=== PATIENT | female | born 1990 | race Caucasian/White ===

== ENCOUNTER 2017-11-22 14:29 | Inpatient (IN) | payer BC ==
[2017-11-22] MEDS ORDERED: Sodium Chloride 0.9% 2.5 ML Syringe FLUSH PRN (15:33)
[2017-11-22] MEDS ORDERED: Sodium Chloride 0.9% 10 ML Syringe FLUSH PRN (15:33)
[2017-11-22 17:18] LABS: CHLORIDE,CL 103 mmol/L (98-107); SODIUM,NA 132 mmol/L (136-145)
[2017-11-23 06:54] LABS: CHLORIDE,CL 104 mmol/L (98-107); SODIUM,NA 134 mmol/L (136-145)
[2017-11-23] MEDS: Prenatal Multivitamin and Multimineral with Iron Tab PO SCH (09:00)
[2017-11-23] MEDS ORDERED: Betamethasone Acetate/Betamethasone Sod Phosphate 30 MG/5 ML MDV IM ONE (14:00)
[2017-11-24] MEDS ORDERED: Terbutaline 1 MG/ML SDV SUBCUT PRN (15:35)
[2017-11-24] MEDS ORDERED: Misoprostol 25 MCG (1/4 of 100 MCG) Tab VAG PRN ×2 (16:00→22:00)
[2017-11-24] MEDS ORDERED: Ampicillin 2 GM in Sodium Chloride 0.9% 100 ML IV ONE (20:00)
[2017-11-24] MEDS ORDERED: Ampicillin 2 GM AdvVial IV ONE (23:17)
[2017-11-25] MEDS ORDERED: Misoprostol 25 MCG (1/4 of 100 MCG) Tab PO ONE (00:05)
[2017-11-25] MEDS: Lactated Ringers 1,000 ML IV SCH ×2 (03:10→05:15)
[2017-11-25] MEDS: Ampicillin 1 GM in Sodium Chloride 0.9% 50 ML IV SCH ×3 (03:28→11:19)
--- NOTE | 2017-11-25 03:34 | PCM.PREANE ---
Preanesthetic Assessment - Anesthesia/Transfusion/Family Hx Anesthesia History: No Prior Anesthesia Family History of Anesthesia Reaction: No Transfusion History: No Prior Transfusion(s) - Review of Systems General: No Symptoms Pulmonary: No Symptoms Cardiovascular: No Symptoms, Edema Gastrointestinal: No Symptoms Neurological: No Symptoms Other: Reports: None (Denies any personal or family hx of bleeding or clotting problems) - Physical Assessment Height: 1.55 m Weight: 77.224 kg ASA Class: 3 Mental Status: Alert & Oriented x3 Airway Class: Mallampati = 2 Dentition: Reports: Normal Dentition Thyro-Mental Finger Breadths: 3 Mouth Opening Finger Breadths: 3 - Lab Values: Laboratory Last Values WBC 6.94 K/uL (4.0-11.0) 11/23/17 05:55 RBC 4.08 M/uL (4.30-5.90) L 11/23/17 05:55 Hgb 12.3 g/dL (12.0-16.0) 11/23/17 05:55 Hct 36.0 % (36.0-46.0) 11/23/17 05:55 MCV 88.2 fL (80.0-98.0) 11/23/17 05:55 MCH 30.1 pg (27.0-32.0) 11/23/17 05:55 MCHC 34.2 g/dL (31.0-37.0) 11/23/17 05:55 RDW Std Deviation 43.8 fl (28.0-62.0) 11/23/17 05:55 RDW Coeff of Edward 14 % (11.0-15.0) 11/23/17 05:55 Plt Count 200 K/uL (150-400) 11/23/17 05:55 MPV 11.30 fL (7.40-12.00) 11/23/17 05:55 Nucleated RBC % 0.0 /100WBC 11/23/17 05:55 Nucleated RBCs # 0 K/uL 11/23/17 05:55 Sodium 134 mmol/L (136-145) L 11/23/17 05:55 Potassium 4.3 mmol/L (3.5-5.1) 11/23/17 05:55 Chloride 104 mmol/L (98-107) 11/23/17 05:55 Carbon Dioxide 22.4 mmol/L (21.0-32.0) 11/23/17 05:55 BUN 24 mg/dL (7.0-18.0) H 11/23/17 05:55 Creatinine 1.0 mg/dL (0.6-1.0) 11/23/17 05:55 Est Cr Clr Drug Dosing 63.20 mL/min 11/23/17 05:55 Estimated GFR (MDRD) > 60.0 ml/min 11/23/17 05:55 Glucose 90 mg/dL (74-106) 11/23/17 05:55 POC Glucose 102 mg/dL (60-110) 11/24/17 18:02 Uric Acid 8.8 mg/dL (2.6-7.2) H 11/23/17 05:55 Calcium 8.2 mg/dL (8.5-10.1) L 11/23/17 05:55 Total Bilirubin 0.2 mg/dL (0.2-1.0) 11/23/17 05:55 AST 23 IU/L (15-37) 11/23/17 05:55 ALT 27 IU/L (14-63) 11/23/17 05:55 Alkaline Phosphatase 153 U/L (46-116) H 11/23/17 05:55 Lactate Dehydrogenase 216 U/L (81-234) 11/22/17 16:26 Total Protein 5.5 g/dL (6.4-8.2) L 11/23/17 05:55 Albumin 2.0 g/dL (3.4-5.0) L 11/23/17 05:55 Globulin 3.5 g/dL (2.0-3.5) 11/23/17 05:55 Albumin/Globulin Ratio 0.6 (1.3-2.8) L 11/23/17 05:55 Ur Collection Duration 24 11/23/17 16:15 Urine Total Volume 1900 (800-1800) H 11/23/17 16:15 Ur Total Protein Conc 224.2 mg/dL (0-14) H 11/23/17 16:15 Ur Total Protein 24 Hr 4259.8 mg/24HRS 11/23/17 16:15 Blood Type B POSITIVE 11/22/17 16:26 Antibody Screen NEGATIVE 11/22/17 16:26 - Allergies Allergies/Adverse Reactions: Allergies Allergy/AdvReac Type Severity Reaction Status Date / Time No Known Allergies Allergy Verified 10/31/15 10:22 - Acknowledgements Anesthesia Type Planned: Epidural Pt an Appropriate Candidate for the Planned Anesthesia: Yes Alternatives and Risks of Anesthesia Discussed w Pt/Guardian: Yes Pt/Guardian Understands and Agrees with Anesthesia Plan: Yes PreAnesthesia Questionnaire Cardiovascular History: Reports: Other (See Below) Other Cardiovascular History: gestational Hypertension 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: Endocrine/Metabolic History: Reports: Diabetes, Gestational Hematologic History: Reports: Anemia - Past Surgical History Cardiovascular Surgical History: Reports: None - SUBSTANCE USE Smoking Status *Q: Never Smoker Tobacco Use Within Last Twelve Months: No Second Hand Smoke Exposure: No Recreational Drug Use History: No - HOME MEDS Home Medications: Home Meds Aspirin [Children's Aspirin] 81 mg PO DAILY 11/22/17 [History] Ferrous Sulfate [Iron] 325 mg PO DAILY 11/22/17 [History] No.137/Iron/Folic Acd [ Vitamin Tablet] 1 each PO DAILY [History] - CURRENT (IN HOUSE) MEDS Current Meds: Current Medications Oxytocin/Sodium Chloride (Oxytocin 30 Unit/500 Ml-Ns) 30 unit in 500 mls @ 2 mls/hr IV TITRATE JULIUS; Protocol Ampicillin Sodium 1 gm/ Sodium (Chloride) 50 mls @ 100 mls/hr IV Q4H JULIUS Last Admin: 11/25/17 03:28 Dose: 100 mls/hr Lactated Ringer's (Ringers, Lactated) 1,000 mls @ 125 mls/hr IV ASDIRECTED JULIUS Last Admin: 11/25/17 03:10 Dose: 999 mls/hr Misoprostol (Cytotec) 25 mcg VAG ONETIME PRN PRN Reason: Cervical Ripening Last Admin: 11/24/17 17:17 Dose: 25 mcg Misoprostol (Cytotec) 25 mcg VAG Q6H PRN PRN Reason: Cervical Ripening Last Admin: 11/24/17 23:38 Dose: 25 mcg Prenat Multivit/[place]/Iron/Folic Ac ( Mtr) 1 each PO DAILY JULIUS Last Admin: 11/23/17 09:00 Dose: 1 each Sodium Chloride (Saline Flush) 10 ml FLUSH ASDIRECTED PRN PRN Reason: Keep Vein Open Sodium Chloride (Saline Flush) 2.5 ml FLUSH ASDIRECTED PRN PRN Reason: Keep Vein Open Terbutaline Sulfate (Brethine) 0.25 mg SUBCUT ASDIRECTED PRN PRN Reason: Tacysystole Discontinued Medications Ampicillin Sodium (Ampicillin) Confirm Administered Dose 2 gm IV .STK-MED ONE Stop: 11/24/17 23:18 Betamethasone Acet/Betameth SodPhos (Celestone Soluspan 6 Mg/Ml) 12 mg IM ONETIME ONE Stop: 11/23/17 14:01 Last Admin: 11/23/17 14:12 Dose: 2 ml Ampicillin Sodium 2 gm/ Sodium (Chloride) 100 mls @ 200 mls/hr IV ONETIME ONE Stop: 11/24/17 20:29 Last Admin: 11/24/17 23:31 Dose: 200 mls/hr Fentanyl/Bupivacaine HCl (Fejacdmh-Hzazu-Yt 2 Mcg/Ml-0.125%) Confirm Administered Dose 100 mls @ as directed EP .STK-MED ONE Stop: 11/25/17 02:53 Misoprostol (Cytotec) 25 mcg PO ONETIME ONE Stop: 11/25/17 00:06
[2017-11-25] MEDS: Oxytocin/0.9 % Sodium Chloride 30 UNIT/500 ML BAG IV SCH ×2 (05:30→13:54)
[2017-11-25] MEDS ORDERED: Bupivacaine 0.5% 30 ML SDV ONE (11:06)
[2017-11-25] MEDS ORDERED: Lidocaine 1% 50 ML MDV ONE (12:49)
[2017-11-25] MEDS ORDERED: Morphine 10 MG/ML Syringe IVPUSH ONE (13:10)
[2017-11-25] MEDS ORDERED: Misoprostol 200 MCG Tab ONE (13:10)
[2017-11-25] MEDS ORDERED: Morphine 10 MG/ML Syringe ONE (13:10)
[2017-11-25] MEDS ORDERED: Ibuprofen 400 MG Tab PO PRN (14:18)
[2017-11-25] MEDS ORDERED: Acetaminophen 500 MG Tab PO PRN ×2 (14:18)
[2017-11-25] MEDS ORDERED: Lanolin 100% Cream 7 GM Tube TOP PRN (14:18)
[2017-11-25] MEDS ORDERED: Bisacodyl 10 MG Supp RECTAL PRN (14:18)
[2017-11-25] MEDS ORDERED: Witch Hazel Medicated Pads 40/Jar TOP PRN (14:18)
[2017-11-25] MEDS ORDERED: Benzocaine/Menthol 20%-0.5% Spray 78 GM Cannister TOP PRN (14:18)
[2017-11-25] MEDS ORDERED: Docusate Sodium 100 MG Cap PO PRN (14:18)
[2017-11-25] MEDS ORDERED: oxyCODONE 5 MG Tab PO PRN (14:18)
--- NOTE | 2017-11-25 14:30 | PCM.DEL ---
L & D Note - General Info Date of Service: 11/25/17 Mother's Due Date: 12/20/17 - Delivery Note Labor: Induced by Oxytocin Cervical Ripening Method: Misoprostil Delivery Outcome: Livebirth Infant Delivery Method: Spontaneous Vaginal Delivery-Twins (Twin delivery ) Presentation: Right Occiput Anterior (OLE) Nuchal Cord: None Anesthesia Type: Epidural Anesthetic: Lidocaine (Xylocaine) 1% Plain Local Anesthetic Volume: 5cc Amniotic Fluid Description: Clear Episiotomy Type: None Laceration: 2nd Degree Suture type: Other (monocyrl) Suture size: 2-0 Placenta: Intact Cord: 3 Vessels Estimated Blood Loss: 1,000 Resuscitation Needed: Yes [place]: Bulb Syringe (Twin A - Live female deliver) Score 1 min: 8 Score 5 min: 9 Delivery Comments (Free Text/Narrative):: Twin vertex delivery Twin A: Live female delivered at 12.11 8/9 wt: 2330g Twin B: Live female delivered at 12.27 7/8 wt:1800g - General Info Date of Service: 11/25/17 - Patient Data Weight - Most Recent: 77.224 kg Lab Results Last 24 Hours: Laboratory Results - last 24 hr 11/24/17 Range/Units 18:02 POC Glucose 102 (60-110) mg/dL Med Orders - Current: Current Medications Acetaminophen (Tylenol Extra Strength) 500 mg PO Q4H PRN PRN Reason: Pain Acetaminophen (Tylenol Extra Strength) 1,000 mg PO Q4H PRN PRN Reason: Pain Benzocaine/Menthol (Dermoplast Pain Relief 20%-0.5% [place]) 78 gm TOP ASDIRECTED PRN PRN Reason: Perineal Comfort Measure Bisacodyl (Dulcolax) 10 mg RECTAL ONETIME PRN PRN Reason: Constipation Carboprost Tromethamine (Hemabate Ds) 250 mcg IM ASDIRECTED ONE Stop: 11/25/17 12:46 Docusate Sodium (Colace) 100 mg PO BID PRN PRN Reason: Constipation Emollient Ointment (Lansinoh Hpa) 0 gm TOP ASDIRECTED PRN PRN Reason: Sore Nipples Oxytocin/Sodium Chloride (Oxytocin 30 Unit/500 Ml-Ns) 30 unit in 500 mls @ 2 mls/hr IV TITRATE JULIUS; Protocol Last Admin: 11/25/17 13:54 Dose: 999 munits/min, 999 mls/hr Ampicillin Sodium 1 gm/ Sodium (Chloride) 50 mls @ 100 mls/hr IV Q4H [facility] Last Admin: 11/25/17 11:19 Dose: 100 mls/hr Lactated Ringer's (Ringers, Lactated) 1,000 mls @ 125 mls/hr IV ASDIRECTED [facility] Last Admin: 11/25/17 05:15 Dose: 999 mls/hr Ibuprofen (Motrin) 400 mg PO Q4H PRN PRN Reason: Pain Ibuprofen (Motrin) 800 mg PO Q6H PRN PRN Reason: Pain Misoprostol (Cytotec) 25 mcg VAG ONETIME PRN PRN Reason: Cervical Ripening Last Admin: 11/24/17 17:17 Dose: 25 mcg Misoprostol (Cytotec) 25 mcg VAG Q6H PRN PRN Reason: Cervical Ripening Last Admin: 11/24/17 23:38 Dose: 25 mcg Oxycodone HCl (Oxycodone) 5 mg PO Q2H PRN PRN Reason: Pain Prenat Multivit/Cut Roll Machine Operator/Iron/Folic Ac ( Mtr) 1 each PO DAILY [facility] Last Admin: 11/23/17 09:00 Dose: 1 each Sodium Chloride (Saline Flush) 10 ml FLUSH ASDIRECTED PRN PRN Reason: Keep Vein Open Sodium Chloride (Saline Flush) 2.5 ml FLUSH ASDIRECTED PRN PRN Reason: Keep Vein Open Terbutaline Sulfate (Brethine) 0.25 mg SUBCUT ASDIRECTED PRN PRN Reason: Tacysystole Witpo Liriano (Tucks) 1 pad TOP ASDIRECTED PRN PRN Reason: comfort care Discontinued Medications Ampicillin Sodium (Ampicillin) Confirm Administered Dose 2 gm IV .STK-MED ONE Stop: 11/24/17 23:18 Betamethasone Acet/Betameth SodPhos (Celestone Soluspan 6 Mg/Ml) 12 mg IM ONETIME ONE Stop: 11/23/17 14:01 Last Admin: 11/23/17 14:12 Dose: 2 ml Bupivacaine HCl (Marcaine 0.5%) Confirm Administered Dose 30 ml .ROUTE .STK-MED ONE Stop: 11/25/17 11:07 Ampicillin Sodium 2 gm/ Sodium (Chloride) 100 mls @ 200 mls/hr IV ONETIME ONE Stop: 11/24/17 20:29 Last Infusion: 11/25/17 00:00 Dose: Infused Fentanyl/Bupivacaine HCl (Dcqtfayr-Wgzzu-Bk 2 Mcg/Ml-0.125%) Confirm Administered Dose 100 mls @ as directed EP .STK-MED ONE Stop: 11/25/17 02:53 Fentanyl/Bupivacaine HCl (Kvtnlkcg-Zxqxp-Av 2 Mcg/Ml-0.125%) Confirm Administered Dose 100 mls @ as directed EP .STK-MED ONE Stop: 11/25/17 11:40 Lidocaine HCl (Xylocaine-Mpf 1%) Confirm Administered Dose 10 mls @ as directed .ROUTE .STK-MED ONE Stop: 11/25/17 12:48 Lidocaine HCl (Xylocaine 1%) Confirm Administered Dose 50 ml .ROUTE .STK-MED ONE Stop: 11/25/17 12:50 Misoprostol (Cytotec) 25 mcg PO ONETIME ONE Stop: 11/25/17 00:06 Last Admin: 11/25/17 00:05 Dose: 25 mcg Misoprostol (Cytotec) Confirm Administered Dose 800 mcg .ROUTE .STK-MED ONE Stop: 11/25/17 13:11 Morphine Sulfate (Morphine) Confirm Administered Dose 10 mg .ROUTE .STK-MED ONE Stop: 11/25/17 13:11 - Problem List & Annotations (1) Twin delivered vaginally SNOMED Code(s): 230533623 Code(s): O30.009 - TWIN , UNSP NUM PLCNTA & AMNIO SACS, UNSP TRIMESTER Status: Acute Current Visit: Yes - Problem List Review Problem List Initiated/Reviewed/Updated: Yes - My Orders Last 24 Hours: My Active Orders 11/24/17 15:35 Bedrest Bathroom Privileges [RC] ASDIRECTED Communication Order [RC] ASDIRECTED Communication Order [RC] ASDIRECTED Communication Order [RC] ASDIRECTED Notify Provider [RC] PRN Notify Provider [RC] PRN Notify Provider [RC] STAT Oxygen Therapy [RC] ASDIRECTED Vital Signs [RC] PER UNIT ROUTINE Terbutaline [Brethine] 0.25 mg SUBCUT ASDIRECTED PRN 11/24/17 15:45 Oxytocin/0.9 % Sodium Chloride [Oxytocin 30 Unit/500 ML-NS] 30 unit in 500 ml IV TITRATE Medication Administration Instruction [OM.PC] Q3H 11/24/17 16:00 miSOPROStol [Cytotec] 25 mcg VAG ONETIME PRN 11/24/17 22:00 miSOPROStol [Cytotec] 25 mcg VAG Q6H PRN 11/24/17 23:30 Lactated Ringers [Ringers, Lactated] 1,000 ml IV ASDIRECTED 11/25/17 00:00 Ampicillin 1 gm Sodium Chloride 0.9% [Normal Saline] 50 ml IV Q4H 11/25/17 11:13 OB Ltd 1 or More Fetus [US] Routine 11/25/17 12:45 Carboprost Tromethamine [Hemabate DS] 250 mcg IM ASDIRECTED ONE 11/25/17 13:10 Morphine 6 mg IVPUSH ONETIME ONE 11/25/17 14:18 CBC WITH AUTO DIFF [HEME] Urgent COMPREHENSIVE METABOLIC PN,CMP [CHEM] Urgent Acetaminophen [Tylenol Extra Strength] 1,000 mg PO Q4H PRN Acetaminophen [Tylenol Extra Strength] 500 mg PO Q4H PRN Benzocaine/Menthol [Dermoplast Pain Relief 20%-0.5% [place]] 78 gm TOP ASDIRECTED PRN Bisacodyl [Dulcolax] 10 mg RECTAL ONETIME PRN Docusate Sodium [Colace] 100 mg PO BID PRN Ibuprofen [Motrin] 400 mg PO Q4H PRN Ibuprofen [Motrin] 800 mg PO Q6H PRN Lanolin [Lansinoh HPA] See Dose Instructions TOP ASDIRECTED PRN Witch Deandra [Tucks] 1 pad TOP ASDIRECTED PRN oxyCODONE 5 mg PO Q2H PRN Resuscitation Status Routine 11/25/17 14:19 Patient Status [ADT] Routine May Shower [RC] ASDIRECTED Up ad Rhina [RC] ASDIRECTED Vital Signs [RC] PER UNIT ROUTINE Assess Lochia [WOMSER] Per Unit Routine Assess Uterine Involution [WOMSER] Per Unit Routine Peripheral IV Discontinue [OM.PC] Routine 11/26/17 06:00 HEMOGLOBIN/HEMATOCRIT,HH [HEME] Routine
[2017-11-25] MEDS: Carboprost Tromethamine 250 MCG/1 ML Amp IM ONE ×2 (14:47→14:48)
[2017-11-25 15:05] LABS: CHLORIDE,CL 101 mmol/L (98-107); SODIUM,NA 130 mmol/L (136-145)
[2017-11-25] MEDS: Ibuprofen 800 MG Tab PO PRN (16:43)
[2017-11-26] MEDS: Ibuprofen 800 MG Tab PO PRN (03:18)
--- NOTE | 2017-11-26 08:09 | PCM48HPAN ---
Post Anesthesia Note - EVALUATION WITHIN 48HRS OF ANESTHETIC Vital Signs in Normal Range: Yes Patient Participated in Evaluation: Yes Respiratory Function Stable: Yes Airway Patent: Yes Cardiovascular Function Stable: Yes Hydration Status Stable: Yes Pain Control Satisfactory: Yes Nausea and Vomiting Control Satisfactory: Yes Mental Status Recovered: Yes Resp Rate: 20 - COMMENTS/OBSERVATIONS Free Text/Narrative:: Resting with babies in room. States she is just sore from delivery.
--- NOTE | 2017-11-26 08:15 | PCM.PNPP ---
<Roxana Cotto - Last Filed: 11/26/17 08:10> - General Info Date of Service: 11/26/17 Functional Status: Reports: Pain Controlled, Tolerating Diet, Ambulating, Urinating - Review of Systems General: Denies: Fever, Weakness, Fatigue Pulmonary: Denies: Shortness of Breath, Pleuritic Chest Pain, Cough Cardiovascular: Denies: Chest Pain, Palpitations, Dyspnea on Exertion Gastrointestinal: Denies: Abdominal Pain Genitourinary: Denies: Dysuria - General Info Date of Service: 11/26/17 - Patient Data Vital Signs - Most Recent: Last Vital Signs Temp 36.7 C 11/26/17 05:54 Pulse 72 11/26/17 05:54 Resp 20 11/26/17 08:08 BP 130/79 11/26/17 05:54 Pulse Ox 95 11/26/17 05:54 Weight - Most Recent: 170 lb 4 oz Lab Results - Last 24 Hours: Laboratory Results - last 24 hr 11/25/17 11/25/17 11/26/17 Range/Units 14:35 14:35 04:48 WBC 17.24 H (4.0-11.0) K/uL RBC 3.26 L (4.30-5.90) M/uL Hgb 9.9 L 8.6 L (12.0-16.0) g/dL Hct 28.6 L 24.2 L (36.0-46.0) % MCV 87.7 (80.0-98.0) fL MCH 30.4 (27.0-32.0) pg MCHC 34.6 (31.0-37.0) g/dL RDW Std Deviation 43.1 (28.0-62.0) fl RDW Coeff of Edward 14 (11.0-15.0) % Plt Count 230 (150-400) K/uL MPV 11.10 (7.40-12.00) fL Neut % (Auto) 81.9 H (48.0-80.0) % Lymph % (Auto) 9.3 L (16.0-40.0) % [place] % (Auto) 8.8 (0.0-15.0) % Eos % (Auto) 0.0 (0.0-7.0) % Baso % (Auto) 0.0 (0.0-1.5) % Neut # (Auto) 14.1 H (1.4-5.7) K/uL Lymph # (Auto) 1.6 (0.6-2.4) K/uL [place] # (Auto) 1.5 H (0.0-0.8) K/uL Eos # (Auto) 0.0 (0.0-0.7) K/uL Baso # (Auto) 0.0 (0.0-0.1) K/uL Nucleated RBC % 0.0 /100WBC Nucleated RBCs # 0 K/uL Sodium 130 L (136-145) mmol/L Potassium 4.0 (3.5-5.1) mmol/L Chloride 101 (98-107) mmol/L Carbon Dioxide 20.0 L (21.0-32.0) mmol/L BUN 21 H (7.0-18.0) mg/dL Creatinine 1.0 (0.6-1.0) mg/dL Est Cr Clr Drug Dosing 63.20 mL/min Estimated GFR (MDRD) > 60.0 ml/min Glucose 99 (74-106) mg/dL Calcium 6.8 L (8.5-10.1) mg/dL Total Bilirubin 0.1 L (0.2-1.0) mg/dL AST 35 (15-37) IU/L ALT 26 (14-63) IU/L Alkaline Phosphatase 113 (46-116) U/L Total Protein 4.0 L (6.4-8.2) g/dL Albumin 1.5 L (3.4-5.0) g/dL Globulin 2.5 (2.0-3.5) g/dL Albumin/Globulin Ratio 0.6 L (1.3-2.8) Med Orders - Current: Current Medications Acetaminophen (Tylenol Extra Strength) 500 mg PO Q4H PRN PRN Reason: Pain Acetaminophen (Tylenol Extra Strength) 1,000 mg PO Q4H PRN PRN Reason: Pain Benzocaine/Menthol (Dermoplast Pain Relief 20%-0.5% [place]) 78 gm TOP ASDIRECTED PRN PRN Reason: Perineal Comfort Measure Last Admin: 11/25/17 16:43 Dose: 1 can Bisacodyl (Dulcolax) 10 mg RECTAL ONETIME PRN PRN Reason: Constipation Docusate Sodium (Colace) 100 mg PO BID PRN PRN Reason: Constipation Emollient Ointment (Lansinoh Hpa) 0 gm TOP ASDIRECTED PRN PRN Reason: Sore Nipples Last Admin: 11/25/17 16:42 Dose: 1 tube Oxytocin/Sodium Chloride (Oxytocin 30 Unit/500 Ml-Ns) 30 unit in 500 mls @ 2 mls/hr IV TITRATE [facility]; Protocol Last Admin: 11/25/17 13:54 Dose: 999 munits/min, 999 mls/hr Ampicillin Sodium 1 gm/ Sodium (Chloride) 50 mls @ 100 mls/hr IV Q4H [facility] Last Admin: 11/25/17 11:19 Dose: 100 mls/hr Lactated Ringer's (Ringers, Lactated) 1,000 mls @ 125 mls/hr IV ASDIRECTED [facility] Last Admin: 11/25/17 05:15 Dose: 999 mls/hr Ibuprofen (Motrin) 400 mg PO Q4H PRN PRN Reason: Pain Ibuprofen (Motrin) 800 mg PO Q6H PRN PRN Reason: Pain Last Admin: 11/26/17 03:18 Dose: 800 mg Misoprostol (Cytotec) 25 mcg VAG ONETIME PRN PRN Reason: Cervical Ripening Last Admin: 11/24/17 17:17 Dose: 25 mcg Misoprostol (Cytotec) 25 mcg VAG Q6H PRN PRN Reason: Cervical Ripening Last Admin: 11/24/17 23:38 Dose: 25 mcg Oxycodone HCl (Oxycodone) 5 mg PO Q2H PRN PRN Reason: Pain Prenat Multivit/[place]/Iron/Folic Ac ( Mtr) 1 each PO DAILY [facility] Last Admin: 11/23/17 09:00 Dose: 1 each Sodium Chloride (Saline Flush) 10 ml FLUSH ASDIRECTED PRN PRN Reason: Keep Vein Open Sodium Chloride (Saline Flush) 2.5 ml FLUSH ASDIRECTED PRN PRN Reason: Keep Vein Open Terbutaline Sulfate (Brethine) 0.25 mg SUBCUT ASDIRECTED PRN PRN Reason: Tacysystole Witch Deandra (Tucks) 1 pad TOP ASDIRECTED PRN PRN Reason: comfort care Last Admin: 11/25/17 16:42 Dose: 1 tub Discontinued Medications Ampicillin Sodium (Ampicillin) Confirm Administered Dose 2 gm IV .STK-MED ONE Stop: 11/24/17 23:18 Betamethasone Acet/Betameth SodPhos (Celestone Soluspan 6 Mg/Ml) 12 mg IM ONETIME ONE Stop: 11/23/17 14:01 Last Admin: 11/23/17 14:12 Dose: 2 ml Bupivacaine HCl (Marcaine 0.5%) Confirm Administered Dose 30 ml .ROUTE .STK-MED ONE Stop: 11/25/17 11:07 Carboprost Tromethamine (Hemabate Ds) 250 mcg IM ASDIRECTED ONE Stop: 11/25/17 12:46 Last Admin: 11/25/17 14:48 Dose: 250 mcg Ampicillin Sodium 2 gm/ Sodium (Chloride) 100 mls @ 200 mls/hr IV ONETIME ONE Stop: 11/24/17 20:29 Last Infusion: 11/25/17 00:00 Dose: Infused Fentanyl/Bupivacaine HCl (Jbedusyy-Nwkji-Lt 2 Mcg/Ml-0.125%) Confirm Administered Dose 100 mls @ as directed EP .STK-MED ONE Stop: 11/25/17 02:53 Fentanyl/Bupivacaine HCl (Dgdxtvpm-Qorlz-Dv 2 Mcg/Ml-0.125%) Confirm Administered Dose 100 mls @ as directed EP .STK-MED ONE Stop: 11/25/17 11:40 Lidocaine HCl (Xylocaine-Mpf 1%) Confirm Administered Dose 10 mls @ as directed .ROUTE .STK-MED ONE Stop: 11/25/17 12:48 Lidocaine HCl (Xylocaine 1%) Confirm Administered Dose 50 ml .ROUTE .STK-MED ONE Stop: 11/25/17 12:50 Misoprostol (Cytotec) 25 mcg PO ONETIME ONE Stop: 11/25/17 00:06 Last Admin: 11/25/17 00:05 Dose: 25 mcg Misoprostol (Cytotec) Confirm Administered Dose 800 mcg .ROUTE .STK-MED ONE Stop: 11/25/17 13:11 Morphine Sulfate (Morphine) Confirm Administered Dose 10 mg .ROUTE .STK-MED ONE Stop: 11/25/17 13:11 Morphine Sulfate (Morphine) 6 mg IVPUSH ONETIME ONE Stop: 11/25/17 13:11 Last Admin: 11/25/17 13:10 Dose: 6 mg - Infant Interaction Infant Disposition, : in Room with Family Interaction: Holding Feeding: Attempted ; Nursed Fair/Poor Support Person: - Recovery Exam Fundal Tone: Firm Fundal Level: 1 Fingerbreadths Below Umbilicus Fundal Placement: Midline Lochia Amount: Small Lochia Color: Rubra/Red Perineum Description: Intact, Minimal Bruising/Swelling, Edematous Episiotomy/Laceration: Approximated Bladder Status: Voiding Urinary Elimination: Voided - Exam General: Alert, Oriented Neck: Supple Lungs: Clear to Auscultation, Normal Respiratory Effort Cardiovascular: Regular Rate, Regular Rhythm GI/Abdominal Exam: Normal Bowel Sounds, Soft, Non-Tender, No Distention, No Mass Extremities: Normal Inspection, Pedal Edema (2+ pitting) Skin: Warm, Dry, Intact Psy/Mental Status: Alert - Problem List & Annotations (1) Twin delivered vaginally SNOMED Code(s): 704615337 Code(s): O30.009 - TWIN , UNSP NUM PLCNTA & AMNIO SACS, UNSP TRIMESTER Status: Acute Current Visit: Yes - Problem List Review Problem List Initiated/Reviewed/Updated: Yes - Assessment Assessment:: PPD #1 s/p of di/di twin gestation. PIH labs are reassuring. BPs are stable. Denies headache, midepigastric pain, or vision changes. Hemoglobin is 8.6. - Plan Plan:: Continue routine cares. Will monitor BP closely. Will continue iron supplement PP. <Humera Kay - Last Filed: 11/26/17 09:35> - Patient Data Vital Signs - Most Recent: Last Vital Signs Temp 36.7 C 11/26/17 05:54 Pulse 72 11/26/17 05:54 Resp 20 11/26/17 08:08 BP 130/79 11/26/17 05:54 Pulse Ox 95 11/26/17 05:54 Lab Results - Last 24 Hours: Laboratory Results - last 24 hr 11/25/17 11/25/17 11/26/17 Range/Units 14:35 14:35 04:48 WBC 17.24 H (4.0-11.0) K/uL RBC 3.26 L (4.30-5.90) M/uL Hgb 9.9 L 8.6 L (12.0-16.0) g/dL Hct 28.6 L 24.2 L (36.0-46.0) % MCV 87.7 (80.0-98.0) fL MCH 30.4 (27.0-32.0) pg MCHC 34.6 (31.0-37.0) g/dL RDW Std Deviation 43.1 (28.0-62.0) fl RDW Coeff of Edward 14 (11.0-15.0) % Plt Count 230 (150-400) K/uL MPV 11.10 (7.40-12.00) fL Neut % (Auto) 81.9 H (48.0-80.0) % Lymph % (Auto) 9.3 L (16.0-40.0) % [place] % (Auto) 8.8 (0.0-15.0) % Eos % (Auto) 0.0 (0.0-7.0) % Baso % (Auto) 0.0 (0.0-1.5) % Neut # (Auto) 14.1 H (1.4-5.7) K/uL Lymph # (Auto) 1.6 (0.6-2.4) K/uL [place] # (Auto) 1.5 H (0.0-0.8) K/uL Eos # (Auto) 0.0 (0.0-0.7) K/uL Baso # (Auto) 0.0 (0.0-0.1) K/uL Nucleated RBC % 0.0 /100WBC Nucleated RBCs # 0 K/uL Sodium 130 L (136-145) mmol/L Potassium 4.0 (3.5-5.1) mmol/L Chloride 101 (98-107) mmol/L Carbon Dioxide 20.0 L (21.0-32.0) mmol/L BUN 21 H (7.0-18.0) mg/dL Creatinine 1.0 (0.6-1.0) mg/dL Est Cr Clr Drug Dosing 63.20 mL/min Estimated GFR (MDRD) > 60.0 ml/min Glucose 99 (74-106) mg/dL Calcium 6.8 L (8.5-10.1) mg/dL Total Bilirubin 0.1 L (0.2-1.0) mg/dL AST 35 (15-37) IU/L ALT 26 (14-63) IU/L Alkaline Phosphatase 113 (46-116) U/L Total Protein 4.0 L (6.4-8.2) g/dL Albumin 1.5 L (3.4-5.0) g/dL Globulin 2.5 (2.0-3.5) g/dL Albumin/Globulin Ratio 0.6 L (1.3-2.8) Med Orders - Current: Current Medications Acetaminophen (Tylenol Extra Strength) 500 mg PO Q4H PRN PRN Reason: Pain Acetaminophen (Tylenol Extra Strength) 1,000 mg PO Q4H PRN PRN Reason: Pain Benzocaine/Menthol (Dermoplast Pain Relief 20%-0.5% [place]) 78 gm TOP ASDIRECTED PRN PRN Reason: Perineal Comfort Measure Last Admin: 11/25/17 16:43 Dose: 1 can Bisacodyl (Dulcolax) 10 mg RECTAL ONETIME PRN PRN Reason: Constipation Docusate Sodium (Colace) 100 mg PO BID PRN PRN Reason: Constipation Emollient Ointment (Lansinoh Hpa) 0 gm TOP ASDIRECTED PRN PRN Reason: Sore Nipples Last Admin: 11/25/17 16:42 Dose: 1 tube Oxytocin/Sodium Chloride (Oxytocin 30 Unit/500 Ml-Ns) 30 unit in 500 mls @ 2 mls/hr IV TITRATE [facility]; Protocol Last Admin: 11/25/17 13:54 Dose: 999 munits/min, 999 mls/hr Ampicillin Sodium 1 gm/ Sodium (Chloride) 50 mls @ 100 mls/hr IV Q4H [facility] Last Admin: 11/25/17 11:19 Dose: 100 mls/hr Lactated Ringer's (Ringers, Lactated) 1,000 mls @ 125 mls/hr IV ASDIRECTED [facility] Last Admin: 11/25/17 05:15 Dose: 999 mls/hr Ibuprofen (Motrin) 400 mg PO Q4H PRN PRN Reason: Pain Ibuprofen (Motrin) 800 mg PO Q6H PRN PRN Reason: Pain Last Admin: 11/26/17 03:18 Dose: 800 mg Misoprostol (Cytotec) 25 mcg VAG ONETIME PRN PRN Reason: Cervical Ripening Last Admin: 11/24/17 17:17 Dose: 25 mcg Misoprostol (Cytotec) 25 mcg VAG Q6H PRN PRN Reason: Cervical Ripening Last Admin: 11/24/17 23:38 Dose: 25 mcg Oxycodone HCl (Oxycodone) 5 mg PO Q2H PRN PRN Reason: Pain Prenat Multivit/[facility] [employer]/Iron/Folic Ac ( Mtr) 1 each PO DAILY [facility] Last Admin: 11/23/17 09:00 Dose: 1 each Sodium Chloride (Saline Flush) 10 ml FLUSH ASDIRECTED PRN PRN Reason: Keep Vein Open Sodium Chloride (Saline Flush) 2.5 ml FLUSH ASDIRECTED PRN PRN Reason: Keep Vein Open Terbutaline Sulfate (Brethine) 0.25 mg SUBCUT ASDIRECTED PRN PRN Reason: Tacysystole Witch Deandra (Tucks) 1 pad TOP ASDIRECTED PRN PRN Reason: comfort care Last Admin: 11/25/17 16:42 Dose: 1 tub Discontinued Medications Ampicillin Sodium (Ampicillin) Confirm Administered Dose 2 gm IV .STK-MED ONE Stop: 11/24/17 23:18 Betamethasone Acet/Betameth SodPhos (Celestone Soluspan 6 Mg/Ml) 12 mg IM ONETIME ONE Stop: 11/23/17 14:01 Last Admin: 11/23/17 14:12 Dose: 2 ml Bupivacaine HCl (Marcaine 0.5%) Confirm Administered Dose 30 ml .ROUTE .STK-MED ONE Stop: 11/25/17 11:07 Carboprost Tromethamine (Hemabate Ds) 250 mcg IM ASDIRECTED ONE Stop: 11/25/17 12:46 Last Admin: 11/25/17 14:48 Dose: 250 mcg Ampicillin Sodium 2 gm/ Sodium (Chloride) 100 mls @ 200 mls/hr IV ONETIME ONE Stop: 11/24/17 20:29 Last Infusion: 11/25/17 00:00 Dose: Infused Fentanyl/Bupivacaine HCl (Javgnfng-Msipl-Kv 2 Mcg/Ml-0.125%) Confirm Administered Dose 100 mls @ as directed EP .STK-MED ONE Stop: 11/25/17 02:53 Fentanyl/Bupivacaine HCl (Mrptminy-Boaab-Cw 2 Mcg/Ml-0.125%) Confirm Administered Dose 100 mls @ as directed EP .STK-MED ONE Stop: 11/25/17 11:40 Lidocaine HCl (Xylocaine-Mpf 1%) Confirm Administered Dose 10 mls @ as directed .ROUTE .STK-MED ONE Stop: 11/25/17 12:48 Lidocaine HCl (Xylocaine 1%) Confirm Administered Dose 50 ml .ROUTE .STK-MED ONE Stop: 11/25/17 12:50 Misoprostol (Cytotec) 25 mcg PO ONETIME ONE Stop: 11/25/17 00:06 Last Admin: 11/25/17 00:05 Dose: 25 mcg Misoprostol (Cytotec) Confirm Administered Dose 800 mcg .ROUTE .STK-MED ONE Stop: 11/25/17 13:11 Morphine Sulfate (Morphine) Confirm Administered Dose 10 mg .ROUTE .STK-MED ONE Stop: 11/25/17 13:11 Morphine Sulfate (Morphine) 6 mg IVPUSH ONETIME ONE Stop: 11/25/17 13:11 Last Admin: 11/25/17 13:10 Dose: 6 mg - Assessment Assessment:: Patient reviewed- agree with above - Plan Plan:: Will start Iron supplements
--- NOTE | 2017-11-26 10:42 | OR ---
SURGEON: CORTEZ RAJPUT DATE OF PROCEDURE: 11/25/2017 PREOPERATIVE DIAGNOSES: 27-year-old G1, P0, at 36 weeks 3 days, Diamniotic Dichorionic twin gestation ( IVF) Mild preeclampsia, Gestational diabetes GBS Unknown POSTOPERATIVE DIAGNOSES: As above Hemorrage Second degree perineal laceratiion . PROCEDURE: Spontaneous vaginal twin delivery Repair of second degree laceration . ESTIMATED BLOOD LOSS: 1000 mL. ANESTHESIA: Epidural, FINDINGS: Twin A, live female , delivered at 12:11, scores 8 and 9,. Wt 2330g , 3VC Twin B, Live female delivered at 12.27 scores 7 and 8, Wt: 1800g . 3VC BRIEF HISTORY ABOUT THE PATIENT: A 27-year-old G1, P0, who was seen in the clinic at 36 weeks and 1 day, diamniotic dichorionic twin gestation IVF, also gestational diabetes, who came for care and had blood pressures of 140s to 150s over 80s to 90s. At that time, the patient denied headache; however, she had 3+ pedal edema. The patient had PIH labs done which were normal except for elevated uric acid. She was admitted for 24- hour collection of urine, 24-hour urine came out elevated above 4 g. With everything in perspective, the patient was advised for an induction of labor. The patient was started on induction of labor. The patient was started with Cytotec, received two doses of Cytotec followed by Pitocin. The patient had a normal labor course; however, during labor course and in between, she had occasional late deceleration,Pitocin shut off once; however, the patient then was noted to recover back to Cat 2FHT and Pitocin was started. The patient had a normal labor curve and became fully dilated. She was then transfered to the OR for double set up PROCEDURE In the operating room, she was encouraged to push. With the patient's good effort, she delivered the head followed by the body of the A .The cord was then clamped and cut. The was handed over to the awaiting rn liaison. Then, the twin B was also noted to be in vertex position. Membranes were ruptured. She was allowed to labor down and then she delivered the 's head followed by the body of the infant. Then, the placenta was then delivered via controlled cord traction. She was noted to have a second-degree laceration and that was repaired. Vaginal bleeding was increased so she was given Pitocin ( 30U X 2 bags), Hemabate and misoprostol. The bleeding was then controlled. The patient was taken to the recovery room in stable condition. KEV MOBLEY /[id number] MTDCharli
[2017-11-26] MEDS: Prenatal Multivitamin and Multimineral with Iron Tab PO SCH ×2 (16:46→16:51)
[2017-11-26] MEDS: Ferrous Sulfate 325 MG Tab PO SCH ×2 (16:47→20:59)
[2017-11-26] MEDS: Ampicillin 1 GM in Sodium Chloride 0.9% 50 ML IV SCH ×2 (16:47→16:48)
--- NOTE | 2017-11-27 08:34 | PCM.PNPP ---
- General Info Date of Service: 11/27/17 Functional Status: Reports: Pain Controlled, Tolerating Diet, Ambulating, Urinating - Review of Systems General: Denies: Fever, Malaise, Chills HEENT: Denies: Headaches Pulmonary: Denies: Shortness of Breath, Pleuritic Chest Pain Cardiovascular: Denies: Chest Pain, Palpitations, Dyspnea on Exertion Gastrointestinal: Denies: Abdominal Pain Genitourinary: Denies: Dysuria, Frequency, Incontinence - General Info Date of Service: 11/27/17 - Patient Data Vital Signs - Most Recent: Last Vital Signs Temp 37.2 C 11/27/17 04:00 Pulse 77 11/27/17 04:00 Resp 17 11/27/17 04:00 BP 128/83 11/27/17 04:00 Pulse Ox 97 11/27/17 04:00 Weight - Most Recent: 170 lb 4 oz Med Orders - Current: Current Medications Acetaminophen (Tylenol Extra Strength) 500 mg PO Q4H PRN PRN Reason: Pain Acetaminophen (Tylenol Extra Strength) 1,000 mg PO Q4H PRN PRN Reason: Pain Benzocaine/Menthol (Dermoplast Pain Relief 20%-0.5% [place]) 78 gm TOP ASDIRECTED PRN PRN Reason: Perineal Comfort Measure Last Admin: 11/25/17 16:43 Dose: 1 can Bisacodyl (Dulcolax) 10 mg RECTAL ONETIME PRN PRN Reason: Constipation Docusate Sodium (Colace) 100 mg PO BID PRN PRN Reason: Constipation Last Admin: 11/26/17 21:40 Dose: 100 mg Emollient Ointment (Lansinoh Hpa) 0 gm TOP ASDIRECTED PRN PRN Reason: Sore Nipples Last Admin: 11/25/17 16:42 Dose: 1 tube Ferrous Sulfate (Ferrous Sulfate) 325 mg PO BIDMEALS [facility] Last Admin: 11/26/17 20:59 Dose: Not Given Oxytocin/Sodium Chloride (Oxytocin 30 Unit/500 Ml-Ns) 30 unit in 500 mls @ 2 mls/hr IV TITRATE [facility]; Protocol Last Admin: 11/25/17 13:54 Dose: 999 munits/min, 999 mls/hr Ampicillin Sodium 1 gm/ Sodium (Chloride) 50 mls @ 100 mls/hr IV Q4H [facility] Last Admin: 11/26/17 16:48 Dose: Not Given Lactated Ringer's (Ringers, Lactated) 1,000 mls @ 125 mls/hr IV ASDIRECTED [facility] Last Admin: 11/25/17 05:15 Dose: 999 mls/hr Ibuprofen (Motrin) 400 mg PO Q4H PRN PRN Reason: Pain Ibuprofen (Motrin) 800 mg PO Q6H PRN PRN Reason: Pain Last Admin: 11/26/17 03:18 Dose: 800 mg Misoprostol (Cytotec) 25 mcg VAG ONETIME PRN PRN Reason: Cervical Ripening Last Admin: 11/24/17 17:17 Dose: 25 mcg Misoprostol (Cytotec) 25 mcg VAG Q6H PRN PRN Reason: Cervical Ripening Last Admin: 11/24/17 23:38 Dose: 25 mcg Oxycodone HCl (Oxycodone) 5 mg PO Q2H PRN PRN Reason: Pain Prenat Multivit/[place]/Iron/Folic Ac ( Mtr) 1 each PO DAILY [facility] Last Admin: 11/26/17 16:51 Dose: Not Given Sodium Chloride (Saline Flush) 10 ml FLUSH ASDIRECTED PRN PRN Reason: Keep Vein Open Sodium Chloride (Saline Flush) 2.5 ml FLUSH ASDIRECTED PRN PRN Reason: Keep Vein Open Terbutaline Sulfate (Brethine) 0.25 mg SUBCUT ASDIRECTED PRN PRN Reason: Tacysystole Witch Deandra (Tucks) 1 pad TOP ASDIRECTED PRN PRN Reason: comfort care Last Admin: 11/25/17 16:42 Dose: 1 tub Discontinued Medications Ampicillin Sodium (Ampicillin) Confirm Administered Dose 2 gm IV .STK-MED ONE Stop: 11/24/17 23:18 Betamethasone Acet/Betameth SodPhos (Celestone Soluspan 6 Mg/Ml) 12 mg IM ONETIME ONE Stop: 11/23/17 14:01 Last Admin: 11/23/17 14:12 Dose: 2 ml Bupivacaine HCl (Marcaine 0.5%) Confirm Administered Dose 30 ml .ROUTE .STK-MED ONE Stop: 11/25/17 11:07 Carboprost Tromethamine (Hemabate Ds) 250 mcg IM ASDIRECTED ONE Stop: 11/25/17 12:46 Last Admin: 11/25/17 14:48 Dose: 250 mcg Ampicillin Sodium 2 gm/ Sodium (Chloride) 100 mls @ 200 mls/hr IV ONETIME ONE Stop: 11/24/17 20:29 Last Infusion: 11/25/17 00:00 Dose: Infused Fentanyl/Bupivacaine HCl (Ykosgkgc-Qhtnm-Vm 2 Mcg/Ml-0.125%) Confirm Administered Dose 100 mls @ as directed EP .STK-MED ONE Stop: 11/25/17 02:53 Last Admin: 11/26/17 16:51 Dose: Not Given Fentanyl/Bupivacaine HCl (Tuqjqqaa-Fmxlb-Fh 2 Mcg/Ml-0.125%) Confirm Administered Dose 100 mls @ as directed EP .STK-MED ONE Stop: 11/25/17 11:40 Last Admin: 11/26/17 16:50 Dose: Not Given Lidocaine HCl (Xylocaine-Mpf 1%) Confirm Administered Dose 10 mls @ as directed .ROUTE .STK-MED ONE Stop: 11/25/17 12:48 Lidocaine HCl (Xylocaine 1%) Confirm Administered Dose 50 ml .ROUTE .STK-MED ONE Stop: 11/25/17 12:50 Misoprostol (Cytotec) 25 mcg PO ONETIME ONE Stop: 11/25/17 00:06 Last Admin: 11/25/17 00:05 Dose: 25 mcg Misoprostol (Cytotec) Confirm Administered Dose 800 mcg .ROUTE .STK-MED ONE Stop: 11/25/17 13:11 Morphine Sulfate (Morphine) Confirm Administered Dose 10 mg .ROUTE .STK-MED ONE Stop: 11/25/17 13:11 Morphine Sulfate (Morphine) 6 mg IVPUSH ONETIME ONE Stop: 11/25/17 13:11 Last Admin: 11/25/17 13:10 Dose: 6 mg - Infant Interaction Infant Disposition, : in Room with Family Interaction: Holding Infant Feeding: Attempted ; Nursed Fair/Poor Support Person: - Recovery Exam Fundal Tone: Firm Fundal Level: 1 Fingerbreadths Below Umbilicus Fundal Placement: Midline Lochia Amount: Scant Lochia Color: Rubra/Red Perineum Description: Edematous Episiotomy/Laceration: Approximated Bladder Status: Voiding Urinary Elimination: Voided - Exam General: Alert, Oriented Lungs: Clear to Auscultation, Normal Respiratory Effort Cardiovascular: Regular Rate, Regular Rhythm GI/Abdominal Exam: Normal Bowel Sounds, Soft, Non-Tender Extremities: Pedal Edema (+3) Skin: Warm Neurological: No New Focal Deficit - Problem List & Annotations (1) Twin delivered vaginally SNOMED Code(s): 264770853 Code(s): O30.009 - TWIN , UNSP NUM PLCNTA & AMNIO SACS, UNSP TRIMESTER Status: Acute Current Visit: Yes (2) Preeclampsia SNOMED Code(s): 066312011 Code(s): O14.90 - UNSPECIFIED PRE-ECLAMPSIA, UNSPECIFIED TRIMESTER Status: Acute Current Visit: Yes Qualifiers: Trimester: third trimester Qualified Code(s): O14.93 - Unspecified pre- eclampsia, third trimester - Problem List Review Problem List Initiated/Reviewed/Updated: Yes - My Orders Last 24 Hours: My Active Orders 11/26/17 10:00 Ferrous Sulfate 325 mg PO BIDMEALS - Assessment Assessment:: PPD# 2 s/p Twin vaginal delivery following IOL for preeclampsia at 36.3 days. Patient is stable and has remained asymptomatic BP WNL. Pedal edema- patient declined diuretics due to possibility of affecting her milk supply. Seeing consult today before discharge Clinically stable for discharge today Anemia- On ferrous sulphate - Plan Plan:: Discharge instructions given Nothing in the vagina in 6 weeks Bleeding and infection precautions reviewed blues vs depression symptoms discussed Preeclampsia precautions reviewed- follow up in the clinic in 1 week for BP check Use OTC meds for pain. Continue Iron supplements
[2017-11-27] MEDS: Ampicillin 1 GM in Sodium Chloride 0.9% 50 ML IV SCH ×2 (18:41→18:42)
[2017-11-27] MEDS: Ferrous Sulfate 325 MG Tab PO SCH ×2 (18:42→18:44)
[2017-11-27] MEDS: Prenatal Multivitamin and Multimineral with Iron Tab PO SCH (18:44)
== END 2017-11-27 21:05 | disposition home or self-care (01) | DRG 560 ==
LOC: MW.OBCHECK 14:29 → MW.OB 14:33 → MW.OBCHECK 15:33 → OBSVTOIN 11-25 12:27
PROVIDERS: ADMIT Obstetrics & Gynecology; ATTEND Obstetrics & Gynecology
PROC: 10E0XZZ Delivery of Products of Conception, External Approach (ICD-10-PCS; principal; 2017-11-25)
PROC: 3E0P7VZ Introduction of Hormone into Female Reproductive, Via Natural or Artificial Opening (ICD-10-PCS; 2017-11-25)
PROC: 3E033VJ Introduction of Other Hormone into Peripheral Vein, Percutaneous Approach (ICD-10-PCS; 2017-11-25)
PROC: 0KQM0ZZ Repair Perineum Muscle, Open Approach (ICD-10-PCS; 2017-11-25)
PROC: 00HU33Z Insertion of Infusion Device into Spinal Canal, Percutaneous Approach (ICD-10-PCS; 2017-11-25)
DX: O14.94 Unspecified pre-eclampsia, complicating childbirth (principal); O24.420 Gestational diabetes mellitus in childbirth, diet controlled; O70.1 Second degree perineal laceration during delivery; O72.1 Other immediate postpartum hemorrhage; Z3A.36 36 weeks gestation of pregnancy; Z37.2 Twins, both liveborn
CPT/HCPCS: 36415; 59025; 59409; 76815; 80053; 82962; 83615; 84156; 84550; 85014; 85018; 85025; 85027; 86850; 86900; 86901; 88307; A9270-GY; J0290; J0702; J2270; J2590; J3490; J7030; J7050; J7120

== ENCOUNTER 2021-11-04 07:09 | Inpatient (IN) | payer BC ==
[2021-11-04] MEDS ORDERED: Water For Irrigation,Sterile 1,000 ML Container IRR PRN (07:46)
[2021-11-04] MEDS ORDERED: Ondansetron 4 MG/2 ML SDV IVPUSH PRN (07:46)
[2021-11-04] MEDS ORDERED: Sodium Chloride 0.9% 2.5 ML Syringe FLUSH PRN (07:46)
[2021-11-04] MEDS ORDERED: Sodium Chloride 0.9% 10 ML Syringe FLUSH PRN (07:46)
[2021-11-04] MEDS ORDERED: Tranexamic Acid 1,000 MG in Sodium Chloride 0.9% 100 ML IV PRN (07:46)
[2021-11-04] MEDS ORDERED: Methylergonovine 0.2 MG/1 ML Amp IM PRN (07:46)
[2021-11-04] MEDS ORDERED: Terbutaline 1 MG/ML SDV SUBCUT PRN (07:46)
[2021-11-04] MEDS ORDERED: Misoprostol 200 MCG Tab PO PRN (07:46)
[2021-11-04] MEDS ORDERED: Butorphanol 1 MG/ML SDV IVPUSH PRN (07:46)
[2021-11-04] MEDS ORDERED: Sodium Chloride 0.9% 20 ML SDV IV PRN (07:46)
[2021-11-04] MEDS ORDERED: Carboprost Tromethamine 250 MCG/1 ML Amp IM PRN (07:46)
[2021-11-04] MEDS ORDERED: Lidocaine 1% 50 ML MDV INJECT PRN (07:46)
[2021-11-04] MEDS ORDERED: Oxytocin/0.9 % Sodium Chloride 30 UNIT/500 ML BAG IV SCH ×2 (08:00)
[2021-11-04] MEDS ORDERED: Misoprostol 25 MCG (1/4 of 100 MCG) Tab VAG PRN (08:30)
[2021-11-04] MEDS: Lactated Ringers 1,000 ML IV SCH ×2 (08:31→09:08)
[2021-11-04] MEDS: Misoprostol 25 MCG (1/4 of 100 MCG) Tab VAG PRN ×3 (13:13→22:03)
[2021-11-05] MEDS: Lactated Ringers 1,000 ML IV SCH ×2 (02:50→05:57)
[2021-11-05] MEDS ORDERED: Ropivacaine/PF 400 MG/200 ML PCA ONE (02:58)
[2021-11-05] MEDS ORDERED: ePHEDrine 50 MG/ML SDV IVPUSH PRN (03:20)
[2021-11-05] MEDS ORDERED: Ropivacaine HCl/PF 400 MG in Premix Bag 1 BAG EPIDUR SCH (03:30)
[2021-11-05] MEDS ORDERED: Phenylephrine HCl In 0.9% NaCl 1 MG/10 ML Vial IVPUSH SCH (03:30)
[2021-11-05] MEDS ORDERED: Benzocaine/Menthol 20%-0.5% Spray 78 GM Cannister TOP PRN (11:13)
[2021-11-05] MEDS ORDERED: Ibuprofen 400 MG Tab PO PRN (11:13)
[2021-11-05] MEDS ORDERED: oxyCODONE 5 MG Tab PO PRN (11:13)
[2021-11-05] MEDS ORDERED: Acetaminophen 500 MG Tab PO PRN ×2 (11:13)
[2021-11-05] MEDS ORDERED: Ibuprofen 800 MG Tab PO PRN (11:13)
[2021-11-05] MEDS ORDERED: Witch Hazel Medicated Pads 40/Jar TOP PRN (11:13)
[2021-11-05] MEDS ORDERED: Lanolin 100% Cream 7 GM Tube TOP PRN (11:13)
[2021-11-05] MEDS ORDERED: Bisacodyl 10 MG Supp RECTAL PRN (11:13)
[2021-11-05] MEDS ORDERED: Dexmedetomidine 200 MCG/2 ML SDV ONE (12:06)
[2021-11-05] MEDS ORDERED: Tranexamic Acid 1,000 MG/10 ML Vial ONE (12:33)
[2021-11-05] MEDS: Docusate Sodium 100 MG Cap PO PRN (21:12)
[2021-11-06] MEDS: Docusate Sodium 100 MG Cap PO PRN (10:13)
== END 2021-11-06 14:13 | disposition home or self-care (01) | DRG 560 ==
LOC: MW.OBCHECK 07:09 → MW.OB 07:10 → MW.OBCHECK 07:46 → MW.OB 07:46 → OBSVTOIN 11-05 11:13 → MW.OB 11-05 14:40
PROVIDERS: ADMIT Obstetrics & Gynecology; ATTEND Obstetrics & Gynecology
PROC: 10E0XZZ Delivery of Products of Conception, External Approach (ICD-10-PCS; principal; 2021-11-05)
PROC: 10907ZC Drainage of Amniotic Fluid, Therapeutic from Products of Conception, Via Natural or Artificial Opening (ICD-10-PCS; 2021-11-05)
PROC: 3E0P7VZ Introduction of Hormone into Female Reproductive, Via Natural or Artificial Opening (ICD-10-PCS; 2021-11-05)
PROC: 3E033VJ Introduction of Other Hormone into Peripheral Vein, Percutaneous Approach (ICD-10-PCS; 2021-11-05)
PROC: 0KQM0ZZ Repair Perineum Muscle, Open Approach (ICD-10-PCS; 2021-11-05)
PROC: 3E0R3BZ Introduction of Anesthetic Agent into Spinal Canal, Percutaneous Approach (ICD-10-PCS; 2021-11-05)
PROC: 00HU33Z Insertion of Infusion Device into Spinal Canal, Percutaneous Approach (ICD-10-PCS; 2021-11-05)
DX: O66.0 Obstructed labor due to shoulder dystocia (principal); Z3A.38 38 weeks gestation of pregnancy; Z37.0 Single live birth; O70.1 Second degree perineal laceration during delivery; Z20.822 Contact with and (suspected) exposure to COVID-19; O76 Abnormality in fetal heart rate and rhythm complicating labor and delivery; O09.813 Supervision of pregnancy resulting from assisted reproductive technology, third trimester
CPT/HCPCS: 01967; 36415; 51702; 59025; 59409; 82803; 85014; 85018; 85027; 86592; 86850; 86900; 86901; A9270-GY; J2590; J2795; J3490; J7120; U0002

== ENCOUNTER 2021-11-15 10:57 | Emergency (ER) | payer BC ==
[2021-11-15] MEDS ORDERED: Sodium Chloride 0.9% 1,000 ML IV ONE ×2 (11:14→14:15)
[2021-11-15] MEDS ORDERED: Sodium Chloride 0.9% 2.5 ML Syringe FLUSH PRN (11:14)
[2021-11-15] MEDS ORDERED: Sodium Chloride 0.9% 10 ML Syringe FLUSH PRN (11:14)
[2021-11-15 12:00] LABS: CARBON DIOXIDE,CO2 24.9 mmol/L (21.0-32.0); POTASSIUM,K 3.1 mmol/L (3.5-5.1)
[2021-11-15] MEDS ORDERED: Potassium Chloride 10% 20 MEQ/15 ML Soln 30 ML UD Cup PO ONE (12:53)
== END 2021-11-15 17:17 | disposition home or self-care (01) ==
LOC: MW.ED 10:57
DX: O72.1 Other immediate postpartum hemorrhage (principal); R55 Syncope and collapse; D64.9 Anemia, unspecified; Z79.899 Other long term (current) drug therapy
CPT/HCPCS: 36415; 76857; 80053; 85025; 86850; 86900; 86901; 93005; 96360; 96361; 99284; A9270; J3490; J7030

== ENCOUNTER 2021-11-16 13:54 | Emergency (ER) | payer BC | END 2021-11-16 16:59 | disposition home or self-care (01) | LOC: MW.ED 13:54 | DX: M79.605 Pain in left leg (principal) | CPT/HCPCS: 93971-26-LT; 93971-LT; 99283 ==